=== PATIENT | female | born 2000 | race Caucasian/White ===

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

== ENCOUNTER 2020-06-26 23:15 | Emergency (ER) | payer SELFPAY ==
[~2020-06-26] VITALS: Ht 165 cm; Wt 90.0 kg
[2020-06-26 23:25] VITALS: BP 147/90
[2020-06-26] MEDS ORDERED: RX-AMOXICILLIN 500 MG CAP #3 PPK PO STA (23:41)
[2020-06-26] MEDS ORDERED: RX-NAPROXEN (NAPROSYN) 250 MG TAB PPK#4 PO STA (23:41)
--- NOTE | 2020-06-26 23:44 | ED EENT ---
History of Present Illness General Chief Complaint: Dental Problems/Pain Stated Complaint: DENTAL PAIN Nursing Triage Note: Pt here with dental pain to her upper right side; states she has a tooth that has been hurting x 2 days. Source: patient History of Present Illness Date Seen by Provider: Jun 26, 2020 Time Seen by Provider: 23:37 Initial Comments PT ARRIVES VIA POV C/O DENTAL PAIN--ONGOING FOR SEVERAL MONTHS, GRADUALLY GETTING WORSE HAS BEEN WORSE THAN NORMAL FOR THE LAST FEW DAYS NO FEVER NO SWELLING TO FACE/JAW NO DRAINAGE FROM THE AREA HAS NOT SOUGHT CARE AT ANY TIME FOR THIS PROBLEM DOES NOT HAVE DENTIST OR A DR ANYWHERE PCP: NONE DENTIST: NONE Allergies and Home Medications Allergies Coded Allergies: No Known Drug Allergies (Unverified , 11/13/19) Home Medications Amoxicillin 875 Mg Tablet, 875 MG PO BID Prescribed by: RADHA MILLS on 06/26/20 2345 Lidocaine HCl 15 Ml Solution, 1-2 ML MM [id number] Prescribed by: RADHA MILLS on 06/26/20 2345 Naproxen 500 Mg Tablet.dr, 500 MG PO BID Prescribed by: RADHA MILLS on 06/26/20 2345 Patient Home Medication List Home Medication List Reviewed: Yes Review of Systems Review of Systems Constitutional: no symptoms reported; No fever Mouth: see HPI, pain; denies swelling Throat: no symptoms reported Respiratory: no symptoms reported Cardiovascular: no symptoms reported : No LMP: May 31, 2020 Neurological: No Symptoms Reported Past Auhxzon-Mtgvaw-Byaeau Hx Past Med/Social Hx: Reviewed and Corrections made Patient Social History Alcohol Use: Occasionally Uses Recreational Drug Use: No Smoking Status: Current Everyday Smoker Type Used: Cigarettes Recent Foreign Travel: No Contact w/Someone Who Travel: No Recent Infectious Disease Expo: No Recent Hopitalizations: No Seasonal Allergies Seasonal Allergies: No Past Medical History Surgeries: Yes (DENTAL) Respiratory: No Cardiac: No Neurological: No Reproductive Disorders: No Genitourinary: No Gastrointestinal: No Musculoskeletal: No Endocrine: No HEENT: Yes (DENTAL CARIES) Cancer: No Physical Exam Vital Signs Vital Signs - First Documented 06/26/20 23:25 Temp 36.2 Pulse 83 Resp 18 B/P (MAP) 147/90 (109) Pulse Ox 99 O2 Delivery Room Air Height, Weight, BMI Height: '" Weight: lbs. oz. kg; 33.00 BMI Method: General Appearance: WD/WN, no apparent distress Eyes: bilateral eye normal inspection Mouth/Throat: dental tenderness (AND LARGE DENTAL CAVITY TO RIGHT UPPER SECOND PREMOLAR. NO SURROUNDING GUM INFLAMMATION OR SWELLING. NO DRAINAGE. 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 as tested, no motor/sensory deficits, alert, normal mood/affect, oriented x 3 Skin: normal color, warm/dry Progress/Results/Core Measures Results/Orders My Orders Orders - RADHA MILLS DO Rx-Amoxicillin Capsule (Rx-Polymox Capsu (06/26/20 23:41) Lidocaine 2% Viscous 15 Ml (Xylocaine Vi (06/26/20 23:45) Rx-Naproxen (Rx-Naprosyn) (06/26/20 23:41) Vital Signs/I&O 06/26/20 23:25 Temp 36.2 Pulse 83 Resp 18 B/P (MAP) 147/90 (109) Pulse Ox 99 O2 Delivery Room Air Blood Pressure Mean: 109 Departure Impression Primary Impression: Dental caries Disposition: HOME, SELF-CARE Condition: Stable Departure-Patient Inst. Referrals: NO,LOCAL PHYSICIAN (PCP/Family) Primary Care Physician Patient Instructions: Tooth Decay, Adult (DC), Dental Pain (DC) Add. Discharge Instructions: FOLLOW UP WITH DENTIST SOON POSSIBLE--CALL ON TUESDAY TO MAKE AN APPOINTMENT WITH DENTIST OF CHOICE All discharge instructions reviewed with patient and/or family. Voiced understanding. Scripts Naproxen (Naproxen) 500 Mg Tablet. 500 MG PO BID, #20 TAB Prov: JON MILLSA K DO 06/26/20 Lidocaine HCl (Lidocaine HCl Viscous) 15 Ml Solution 1-2 ML MM [id number], #120 ML Prov: RADHA MILLS DO 06/26/20 Amoxicillin (Amoxicillin) 875 Mg Tablet 875 MG PO BID, #20 TAB Prov: JON MILLSA K DO 06/26/20 RADHA MILLS DO Jun 26, 2020 23:43
[2020-06-26] MEDS ORDERED: LIDOCAINE 2% VISCOUS 15 ML UDC PO ONE (23:45)
[2020-06-26] MEDS ORDERED: LIDO20SO23 MM (23:45)
[2020-06-26] MEDS ORDERED: AMOX875T2 PO (23:45)
[2020-06-26] MEDS ORDERED: NAPR500T8 PO (23:45)
== END 2020-06-27 | disposition home or self-care (01) ==
LOC: EDUNIT# 23:15 → ER 23:18
DX: K02.9 Dental caries, unspecified (principal); F17.210 Nicotine dependence, cigarettes, uncomplicated
CPT/HCPCS: 99282

== ENCOUNTER 2022-07-14 17:32 | Emergency (ER) | payer OTHER ==
[~2022-07-14] VITALS: Ht 165 cm; Wt 104.3 kg
[~2022-07-14 17:32] MED LIST: AMOX875T2 PO; LIDO20SO23 MM; NAPR500T8 PO
[2022-07-14] MEDS ORDERED: CYCL10TA25 PO (18:15)
[2022-07-14] MEDS ORDERED: ONDA4TAB11 PO (18:15)
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
[2022-07-14 18:28] VITALS: BP 110/72
== END 2022-07-14 18:28 | disposition home or self-care (01) ==
LOC: EDUNIT# 17:32 → ER 17:33
DX: S06.0X0A Concussion without loss of consciousness, initial encounter (principal); F17.290 Nicotine dependence, other tobacco product, uncomplicated; V49.40XA Driver injured in collision with unspecified motor vehicles in traffic accident, initial encounter; Y92.410 Unspecified street and highway as the place of occurrence of the external cause

== ENCOUNTER 2022-07-15 19:04 | Emergency (ER) | payer OTHER ==
[~2022-07-15] VITALS: Ht 165.1 cm; Wt 104.3 kg
[~2022-07-15 19:04] MED LIST changes: +CYCL10TA25 PO; +ONDA4TAB11 PO
[2022-07-15 19:45] VITALS: BP 118/80
[2022-07-15] MEDS ORDERED: IBUPROFEN 600 MG (MOTRIN) TAB PO ONE (20:15)
--- NOTE | 2022-07-15 20:25 | Diagnostic Imaging Report ---
INDICATION: Right shoulder pain. No fracture or acute bony abnormality seen. Glenohumeral joint and AC joint appear unremarkable. IMPRESSION: Negative right shoulder. Dictated by: Dictated on workstation # [id number]
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
== END 2022-07-15 21:19 | disposition home or self-care (01) ==
LOC: EDUNIT# 19:04 → ER 19:05
DX: S43.401A Unspecified sprain of right shoulder joint, initial encounter (principal); Z28.311 Partially vaccinated for COVID-19; V49.9XXA Car occupant (driver) (passenger) injured in unspecified traffic accident, initial encounter; Y92.410 Unspecified street and highway as the place of occurrence of the external cause
CPT/HCPCS: 73030